=== PATIENT | male | born 1965 | race Caucasian/White ===

== ENCOUNTER → 2016-10-28 | Outpatient (CLI) | payer BC ==
[~2016-10-28] MED LIST: ASTN; BCTCR/30 EXT; CLIN300C2 PO; CLR10 PO; COMPOUND MEDICATION NEB; ERGO1CAP35 PO; GEMF600T PO; INSDGI SC; LEVO75TA5 PO; LISI-789 PO; METF-384 PO
[2016-10-28 11:35] LABS: ESTIMATED AVERAGE GLUCOSE 151 mg/dl; HA1C FLAG Normal (Normal)
[2016-10-28 11:38] LABS: ALT/SGPT 25 U/L (12-78); AST/SGOT 17 U/L (15-37); BLOOD UREA NITROGEN 18 mg/dl (7-18); BUN/CREATININE RATIO 16.5 (10-20); CARBON DIOXIDE 24 mmol/L (21-32); CHLORIDE 106 mmol/L (98-107); CHOLESTEROL 197 mg/dl (0-200); GLUCOSE 143 mg/dl (70-99); POTASSIUM 4.1 mmol/L (3.5-5.1); SODIUM 139 mmol/L (136-145); TRIGLYCERIDES 254 mg/dl (0-150); VERY LOW DENSITY LIPOPROT CALC 51 mg/dl
[2016-10-28 11:46] LABS: ALB/GLOB RATIO 1.3 (0.9-2); ALKALINE PHOSPHATASE 69 U/L (45-117); CHOLESTEROL/HDL RATIO 5.8; HDL CHOLESTEROL 34 mg/dl; LDL CHOLESTEROL CALCULATED 112 mg/dl
[2016-10-28 11:54] LABS: RATIO 5.1 mcg/mg (0-30.0)
== END | disposition home or self-care (01) ==
LOC: C.LABBC 08:34
PROVIDERS: ATTEND Internal Medicine
DX: E55.9 Vitamin D deficiency, unspecified (principal); E03.9 Hypothyroidism, unspecified; Z12.5 Encounter for screening for malignant neoplasm of prostate; E11.9 Type 2 diabetes mellitus without complications

== ENCOUNTER 2016-11-03 03:31 | Emergency (ER) | payer BC, OTHER ==
[~2016-11-03] VITALS: Ht 172.7 cm; Wt 123.6 kg
[~2016-11-03 03:31] MED LIST changes: -INSDGI SC; -LEVO75TA5 PO
[2016-11-03 03:32] VITALS: TEMP 36.6; Ht 172.7 cm; Wt 123.6 kg
[2016-11-03] MEDS ORDERED: SODIUM CHLORIDE 0.9% 1000ML 1,000 ML IV STA (03:42)
--- NOTE | 2016-11-03 03:46 | EMERGENCY ROOM VISIT NOTE ---
History Report prepared by Annamarie: David Ellis Under the Supervision of: Dr. Jimmy Mcrae M.D. First contact with patient: 03:36 Chief Complaint: RIB PAIN Stated Complaint: PAIN IN RIBS/CHEST/SOB History of Present Illness The patient is a 51 year old male who presents to the Emergency Room with complaints of severe left lower chest pain starting about 2 weeks ago and worsening today. He also complains of shortness of breath. He has worsening symptoms with lying down. He has not taken any medication to help alleviate his symptoms. He denies loss of consciousness, diarrhea, blood in stool, or any other complaints. He has a history of blood clots in neck after a port was placed related to pancreatitis treatment. The patient denies any history of splenic problems, AAA, or recent steroid use. Source of History: patient Onset: about 2 weeks ago Position: chest (left) Symptom Intensity: severe Timing: worsening Modifying Factors (Worsening): other (lying down) Associated Symptoms: + SOB, No LOC, No diarrhea Review of Systems See HPI for pertinent positives & negatives. A total of 10 systems reviewed and were otherwise negative. Past Medical & Surgical Medical Problems: (1) Gout attack (2) Hyperlipidemia (3) Hypertension (4) Hypertriglyceridemia (5) Pancreatitis (6) Polyarthropathy (7) Type 2 diabetes mellitus Family History Patient reports no known family medical history. Social History Smoking Status: Never Smoker Alcohol Use: none Drug Use: none Marital Status: Occupation Status: employed Current/Historical Medications Scheduled Gemfibrozil (Lopid), 600 MG PO BID Lisinopril (Zestril), 2.5 MG PO HS Metformin Hcl (Glucophage), 1,000 MG PO BID Allergies Coded Allergies: No Known Allergies (Unverified , 11/03/16) Physical Exam Vital Signs Date Time Temp Pulse Resp B/P Pulse Ox O2 Delivery O2 Flow Rate FiO2 11/03/16 06:43 63 18 146/77 94 11/03/16 05:47 64 18 132/84 96 Room Air 11/03/16 04:34 63 22 139/84 96 Room Air 11/03/16 03:44 75 11/03/16 03:32 36.6 76 18 147/88 95 Room Air Physical Exam GENERAL: Patient is uncomfortable appearing and in moderate distress. HEENT: No acute trauma, normocephalic atraumatic, mucous membranes moist, no nasal congestion, no scleral icterus. NECK: No stridor, no adenopathy, no meningismus, trachea is midline. LUNGS: No dyspnea. Clear to auscultation and equal bilaterally. No wheeze, no rhonchi. HEART: Regular rate and rhythm. No murmurs, rubs, gallops appreciated. ABDOMEN: Soft, tenderness to palpation of left upper quadrant specifically at the base of ribs, bowel sounds positive, no masses appreciated, no peritonitis. BACK: No midline tenderness, no CVA tenderness EXTREMITIES: Normal motion all extremities, no cyanosis, no edema. NEUROLOGIC: Alert and oriented, no acute motor or sensory deficits, no focal weakness, cranial nerves grossly intact. SKIN: No rash, no jaundice, no diaphoresis. Medical Decision & Procedures ER Provider Diagnostic Interpretation: CT results as stated below per interpretation by me and the radiologist: CTA CHEST Compared to 05/03/2012 No evidence of pulmonary embolism or aortic dissection. Minor atelectatic changes. Mild peribronchial thickening. Tiny right lower lobe pulmonary nodule (image [id number]). No pneumothorax or pleural effusion. CT ABDOMEN AND PELVIS Compared to 01/27/2013 Prominence of the left renal collecting system without evidence of ureteral stone. A recently passed stone is not entirely excluded. No evidence of bowel obstruction. No acute inflammatory process. Additional incidental findings. Radiologist: Letty Rosa MD Laboratory Results 11/03/16 04:08 Red Blood Count 4.34, Mean Corpuscular Volume 85.9, Mean Corpuscular Hemoglobin 30.4, Mean Corpuscular Hemoglobin Concent 35.4, Mean Platelet Volume 9.9, Neutrophils (%) (Auto) 51.5, Lymphocytes (%) (Auto) 38.0, Monocytes (%) (Auto) 8.1, Eosinophils (%) (Auto) 1.8, Basophils (%) (Auto) 0.5, Neutrophils # (Auto) 3.77, Lymphocytes # (Auto) 2.78, Monocytes # (Auto) 0.59, Eosinophils # (Auto) 0.13, Basophils # (Auto) 0.04 11/03/16 04:08 Test 11/03/16 04:08 11/03/16 05:42 White Blood Count 7.32 K/uL (4.8-10.8) Red Blood Count 4.34 M/uL (4.7-6.1) Hemoglobin 13.2 g/dL (14.0-18.0) Hematocrit 37.3 % (42-52) Mean Corpuscular Volume 85.9 fL (80-100) Mean Corpuscular Hemoglobin 30.4 pg (25-34) Mean Corpuscular Hemoglobin Concent 35.4 g/dl (32-36) Platelet Count 251 K/uL (130-400) Mean Platelet Volume 9.9 fL (7.4-10.4) Neutrophils (%) (Auto) 51.5 % Lymphocytes (%) (Auto) 38.0 % Monocytes (%) (Auto) 8.1 % Eosinophils (%) (Auto) 1.8 % Basophils (%) (Auto) 0.5 % Neutrophils # (Auto) 3.77 K/uL (1.4-6.5) Lymphocytes # (Auto) 2.78 K/uL (1.2-3.4) Monocytes # (Auto) 0.59 K/uL (0.11-0.59) Eosinophils # (Auto) 0.13 K/uL (0-0.5) Basophils # (Auto) 0.04 K/uL (0-0.2) Bedside Hemoglobin 12.6 g/dl (14.0-18.0) Bedside Hematocrit 37 % (42-52) RDW Standard Deviation 40.9 fL (36.4-46.3) RDW Coefficient of Variation 12.9 % (11.5-14.5) Immature Granulocyte % (Auto) 0.1 % Immature Granulocyte # (Auto) 0.01 K/uL (0.00-0.02) Bedside Sodium 142 mEq/L (135-144) Bedside Potassium 3.7 mEq/L (3.3-5.0) Bedside Chloride 103 mEq/L (101-112) Bedside Total CO2 23 mEq/l (24-31) Anion Gap 21.0 mmol/L (16-25) Bedside Blood Urea Nitrogen 17 mg/dl (7-18) Bedside Creatinine 0.9 mg/dl (0.6-1.3) Est Creatinine Clear Calc Drug Dose 110.6 ml/min Estimated GFR () 99.8 Estimated GFR (Non- 86.2 BUN/Creatinine Ratio 15.5 (10-20) Bedside Glucose (other) 117 mg/dl (70-99) Calcium Level 8.8 mg/dl (8.5-10.1) Bedside Ionized Calcium ([place]and[place]) 1.22 mmol/l (1.12-1.32) Total Bilirubin 0.2 mg/dl (0.2-1) Direct Bilirubin < 0.1 mg/dl (0-0.2) Aspartate Amino Transf (AST/SGOT) 14 U/L (15-37) Alanine Aminotransferase (ALT/SGPT) 27 U/L (12-78) Alkaline Phosphatase 73 U/L (45-117) Total Creatine Kinase 124 U/L (39-308) Creatine Kinase MB 1.0 ng/ml (0.5-3.6) Creatine Kinase MB Ratio 0.8 (0-3.0) Troponin I < 0.015 ng/ml (0-0.045) Total Protein 7.1 gm/dl (6.4-8.2) Albumin 4.0 gm/dl (3.4-5.0) Lipase 135 U/L (73-393) Urine Color YELLOW Urine Appearance CLEAR (CLEAR) Urine pH 5.0 (4.5-7.5) Urine Specific [place] > 1.045 (1.000-1.030) Urine Protein NEG (NEG) Urine Glucose (UA) NEG (NEG) Urine Ketones NEG (NEG) Urine Occult Blood NEG (NEG) Urine Nitrite NEG (NEG) Urine Bilirubin NEG (NEG) Urine Urobilinogen NEG (NEG) Urine Leukocyte Esterase NEG (NEG) Urine WBC (Auto) 0 /hpf (0-5) Urine RBC (Auto) 0-4 /hpf (0-4) Urine Hyaline Casts (Auto) 1-5 /lpf (0-5) Urine Epithelial Cells (Auto) 0-5 /lpf (0-5) Urine Bacteria (Auto) NEG (NEG) Laboratory results as reviewed by me. Medications Administered Medications (Trade) Dose Ordered Sig/Phyllis Route Start Time Stop Time Status Last Admin Dose Admin Sodium Chloride (Nss 1000ml) 1,000 ml @ 999 mls/hr Q1H1M STAT IV 11/03/16 03:42 11/03/16 04:42 DC 11/03/16 04:07 999 MLS/HR ECG Indication: chest pain Rate (beats per minute): 71 Rhythm: normal sinus Findings: no acute ischemic change, no ectopy ED Course 0336: The patient was evaluated in room B12B. A complete history and physical exam was performed. 0342: Sodium Chloride 1000 ml @ 999 mls/hr IV 0516: I reevaluated the patient who is doing well. 0539: The patient reported that his pain periodically radiates to his back. 0634: Reevaluated the patient. Discussed results and discharge instructions: He verbalized understanding and agreement. He will follow up with his PCP on Tuesday. The patient is ready for discharge. Medical Decision Differential: Cholecystitis, Gallbladder disfunction, Hepatic Disfunction, Gastritis/PUD, Pancreatitis, ACS, Aortic Pathology, amongst other pathologies entertained. 51 yr old arrives with pleuritic left lower chest / LUQ pain. Definitively worse with deep inspiration but also with palpation just below rib line. Notes periodically radiates to posterior flank as well. No rash appreciated and patient patient with no known trauma to area. Admits worse while laying flat but essentially has been steady for last 2 weeks. EKG unremarkable and with negative Trop after 2 weeks I feel this is not ACS. Has PE/DVT history thus with pleuritic component felt that CT PE necessary though with pancreatitis history felt reasonable running CT through abdo/pelv as well. He does not have any acute findings on his CT other than some mild left renal findings though UA is completely clean and after 2 weeks I feel that retained stone is unlikely, along with no evidence of infection. No evidence of PE nor pneumonia. Lipase normal and no pancreatitis on CT. Not consistent with cholecystitis. Could be gastric in nature but seems like ongoing for 2 weeks would be unusual. Impression Primary Impression: Left upper quadrant abdominal tenderness Scribe Attestation The scribe's documentation has been prepared under my direction and personally reviewed by me in its entirety. I confirm that the note above accurately reflects all work, treatment, procedures, and medical decision making performed by me. Departure Information Dispostion Home / Self-Care Referrals RV. Moise MD (PCP) Forms HOME CARE DOCUMENTATION FORM, IMPORTANT VISIT INFORMATION, WORK / SCHOOL INSTRUCTIONS Patient Instructions A Signature Page, ED Flank Pain Uncertain Cause, My [facility] Problem Qualifiers Primary Impression: Left upper quadrant abdominal tenderness Presence of rebound: not specified Qualified Codes: R10.812 - Left upper quadrant abdominal tenderness
[2016-11-03] MEDS ORDERED: OPTIRAY 320 IV PRN (04:00)
[2016-11-03 04:20] LABS: BASO % 0.5 %; BASO ABS # 0.04 K/uL (0-0.2); COMPLETE YES; EOS % 1.8 %; HEMATOCRIT 37.3 % (42-52); IG% 0.1 %; LYMPH ABS # 2.78 K/uL (1.2-3.4); MEAN CELL VOLUME 85.9 fL (80-100); MEAN CORPUSCULAR HEMOGLOBIN 30.4 pg (25-34); MEAN CORPUSCULAR HGB CONC 35.4 g/dl (32-36); MEAN PLATELET VOLUME 9.9 fL (7.4-10.4); MONO % 8.1 %; NEUT % 51.5 %; PLATELET COUNT 251 K/uL (130-400); RED BLOOD COUNT 4.34 M/uL (4.7-6.1); WHITE BLOOD COUNT 7.32 K/uL (4.8-10.8)
[2016-11-03 04:25] LABS: ISTAT CREATININE 0.9 mg/dl (0.6-1.3); ISTAT HEMOGLOBIN 12.6 g/dl (14.0-18.0); ISTAT IONIZED CALCIUM 1.22 mmol/l (1.12-1.32)
[2016-11-03 04:39] LABS: ALT/SGPT 27 U/L (12-78); AST/SGOT 14 U/L (15-37); BLOOD UREA NITROGEN 16 mg/dl (7-18); BUN/CREATININE RATIO 15.5 (10-20); CALCIUM 8.8 mg/dl (8.5-10.1); CARBON DIOXIDE 26 mmol/L (21-32); CHLORIDE 106 mmol/L (98-107); GLUCOSE 118 mg/dl (70-99); POTASSIUM 3.7 mmol/L (3.5-5.1); SODIUM 142 mmol/L (136-145)
[2016-11-03 04:44] LABS: ALKALINE PHOSPHATASE 73 U/L (45-117); CKMB/CK RATIO 0.8 (0-3.0)
[2016-11-03 06:20] LABS: URINE APPEARANCE CLEAR (CLEAR); URINE BILIRUBIN NEG (NEG); URINE COLOR YELLOW; URINE EPITHELIAL CELL AUTO 0-5 /lpf (0-5); URINE NITRITE NEG (NEG); URINE SPECIFIC GRAVITY > 1.045 (1.000-1.030); UROBILINOGEN NEG (NEG); ZZUR CULT IF INDIC CLEAN CATCH NO
[2016-11-03 06:21] LABS: MANUAL MICROSCOPIC REQUIRED? NO; REVIEW REQ? NO
[2016-11-03 06:43] VITALS: BP 146/77; PULSE 63; O2SAT 94
--- NOTE | 2016-11-03 06:47 | DIAGNOSTIC IMAGING REPORT ---
CT ABD/PELVIS IV CONTRAST ONLY CLINICAL HISTORY: Left flank and left upper quadrant pain COMPARISON STUDY: 01/27/2013 TECHNIQUE: Following the IV administration of 118 mL of Optiray-320, CT scan of the abdomen and pelvis was performed from the lung bases to the proximal femurs. Images are reviewed in the axial, sagittal, and coronal planes. IV contrast was administered without complication. CT DOSE: FINDINGS: Lower chest: There are mild basilar atelectatic changes. There is a stable 5 x 3 mm right upper lobe pulmonary nodule Liver: There is hepatic steatosis. No focal masses are visualized. Gallbladder: Unremarkable. Spleen: Normal in size and attenuation. Pancreas: There is a small cyst adjacent to the pancreatic head containing calcifications. Given the prior findings of pancreatitis, this likely represents an old pseudocyst. There are few scattered pancreatic parenchymal calcifications. Adrenal glands: Unremarkable. Kidneys: There is minimal prominence of the collecting systems. No calculi are visualized. There is 6 mm right renal hypodensity likely representing a cyst. There is a partially rim calcified 7 mm hypodensity abutting the anterior aspect of the kidney. This is present on prior 2011 study. This may be extrinsic to the kidney. This is of doubtful acute clinical significance. Bowel: There are no transition zones indicate bowel obstruction. The appendix appears normal. There is no evidence of acute diverticulitis. Peritoneum: There is no intraperitoneal free air or abdominal ascites. Vasculature: The abdominal aorta is normal in course and caliber. Adenopathy: None. Pelvic viscera: The bladder, and pelvic viscera are unremarkable. Skeletal structures: No destructive osseous lesions are seen. IMPRESSION: 1. No evidence of bowel obstruction. No evidence of free air 2. No acute inflammatory changes. Electronically signed by: David Kelley M.D. 11/03/2016 6:46 AM Dictated Date/Time: 11/03/2016 6:38 AM
--- NOTE | 2016-11-03 07:30 | DIAGNOSTIC IMAGING REPORT ---
CT ANGIOGRAM OF THE CHEST CLINICAL HISTORY: Pleuritic left-sided chest pain. COMPARISON STUDY: Chest x-ray dated 05/24/2012. Chest CT dated 05/03/2012. TECHNIQUE: Following the IV administration of 118 cc of Optiray 320, CT angiogram of the chest was performed from the upper abdomen to the thoracic inlet utilizing the pulmonary embolus protocol. Images are reviewed in the axial, sagittal, and coronal planes. 3-D MIPS images are created and assessed. IV contrast was administered without complication. CT DOSE: 2251.51 mGy.cm FINDINGS: Thyroid: Imaged portions of the thyroid gland are normal in size and attenuation. Thoracic aorta: The thoracic aorta is normal in caliber and demonstrates standard 3-vessel arch anatomy. No aneurysm or dissection is seen. Pulmonary vasculature: The main pulmonary arteries are mildly dilated suggesting pulmonary artery hypertension. There are no filling defects identified in main, lobar, or segmental pulmonary branches to suggest pulmonary embolus. Heart: The heart is enlarged and without pericardial effusion. Lungs and pleural spaces: Evaluation of the lung parenchyma is modestly degraded by expiratory motion artifact. A calcified granuloma is noted at the left lung base. There is minimal dependent atelectasis. No airspace consolidation or pleural effusion is seen. There is a 3 mm right lower lobe pulmonary nodule seen on axial image #172. This is unchanged from 2012 and of doubtful significance. The trachea and central airways are clear. Mediastinum: There is no mediastinal lymphadenopathy. Cami: Clear. Axillae: There is no axillary lymphadenopathy. Upper abdomen: The liver is enlarged and steatotic. There is a small hiatal hernia. Parenchymal calcifications are noted in the pancreas and suggest chronic pancreatitis. Skeletal structures: No lytic or blastic bony lesions are seen. Arthritic change is noted in the shoulders. IMPRESSION: 1. There is no evidence of pulmonary embolus in the main, lobar, or segmental pulmonary arteries. 2. There is no airspace consolidation or pleural effusion. 3. Cardiomegaly. 4. Hepatomegaly and hepatic steatosis. 5. Findings are consistent with chronic pancreatitis. 6. Additional findings as above. Electronically signed by: Trent Holland M.D. 11/03/2016 7:28 AM Dictated Date/Time: 11/03/2016 7:22 AM
[2017-04-12] MEDS ORDERED: LEVO75TA5 PO (08:56)
[2017-04-12] MEDS ORDERED: INSDGI SC (08:56)
== END 2016-11-03 06:45 | disposition home or self-care (01) ==
LOC: C.EDB 03:31
DX: R10.812 Left upper quadrant abdominal tenderness (principal); I10 Essential (primary) hypertension; E11.9 Type 2 diabetes mellitus without complications; E78.1 Pure hyperglyceridemia; E78.5 Hyperlipidemia, unspecified; Z86.72 Personal history of thrombophlebitis; Z79.84 Long term (current) use of oral hypoglycemic drugs; Z79.899 Other long term (current) drug therapy

== ENCOUNTER → 2017-03-18 | Outpatient (CLI) | payer BC ==
[~2017-03-18] MED LIST changes: -ASTN; -BCTCR/30 EXT; -CLIN300C2 PO; -CLR10 PO; -COMPOUND MEDICATION NEB; -ERGO1CAP35 PO; +INSDGI SC; +LEVO75TA5 PO
--- NOTE | 2017-03-18 08:49 | DIAGNOSTIC IMAGING REPORT ---
CT SCAN OF THE PARANASAL SINUSES CLINICAL HISTORY: Chronic sinusitis. COMPARISON STUDY: CT scan of the paranasal sinuses dated 12/20/2014. TECHNIQUE: High-resolution CT scan of the paranasal sinuses is performed. Images are reviewed in the axial, sagittal, and coronal planes. IV contrast was not administered for this examination. The examination is performed using the fusion protocol. CT DOSE: 628.09 mGy.cm FINDINGS: Postoperative change: There are postoperative changes from maxillary antrectomy with antrostomy formation as well as ethmoid sinus resection. Maxillary antra: There is mild mucosal thickening within the left maxillary antrum with a small air-fluid level. Trace mucosal thickening is seen on the right. Ethmoid cavities: Mild mucosal thickening is noted. Sphenoid sinuses: Trace mucosal thickening is on the left. Clear on the right. Frontal sinuses: Clear. Ostiomeatal complexes: The antrostomies are widely patent bilaterally. Frontoethmoidal and sphenoethmoidal recesses: Patent bilaterally. Carotid arteries: The carotid arteries are covered noting a septal attachment on the right. Ethmoid roofs: There is mildly asymmetric elevation of the left ethmoid roof as compared to the right. Nasal turbinates: Normal in appearance. Nasal septum: There is minimal rightward deviation of the bony nasal septum. Optic nerves: Covered. Orbits: The bony orbits are intact. Orbital contents are normal in appearance. Calvarium: The imaged calvarium is normal in appearance Mastoid air cells: Well pneumatized. Brain parenchyma: Partially visualized brain parenchyma is within normal limits. IMPRESSION: Paranasal sinus disease and postoperative change as above. Electronically signed by: Trent Holland M.D. 03/18/2017 8:48 AM Dictated Date/Time: 03/18/2017 8:45 AM
== END | disposition home or self-care (01) ==
LOC: C.CTS 08:22
DX: J32.9 Chronic sinusitis, unspecified (principal)

== ENCOUNTER → 2017-04-29 | Day surgery (SDC) | payer BC ==
[2017-04-12 08:57] VITALS: Ht 172.7 cm; Wt 109.1 kg
[~2017-04-29] VITALS: Ht 172.7 cm; Wt 109.1 kg
[~2017-04-29] MED LIST changes: +ATROPINE SULFATE 0.1 MG/ML 5ML SYR IV PRN; +CEFAZOLIN 2000 MG/60 ML D5W IV SCH; +DEXAMETHASONE SOD INJ 4 MG/ML VIAL IV PRN; +DEXAMETHASONE SOD INJ 4 MG/ML VIAL ONE; +EpHEDrine SULFATE INJ 50 MG/ML AMP IV PRN; +EpHEDrine SULFATE INJ 50 MG/ML AMP ONE; +EpINEphrine INJ 1MG/ML AMP 1 MG/ML AMP ONE; +FENTANYL CITRATE INJ 50 MCG/1 ML 2 ML VIAL ONE; +GLYCOPYRROLATE INJ 0.2 MG/ML VIAL ONE; +HYDROCODONE/ACETAMOPHEN 5/325MG TAB PO PRN; +KETOROLAC TROMETHAMINE 30 MG/ML VIAL IV. PRN; +LABETALOL HCL IV 5 MG/ML 20ML IV PRN; +LACTATED RINGER'S 1000ML 1,000 ML IV SCH; +LIDOCAINE 4% MPF SOAK 5 ML = 1 DOSE TOP ONE; +LIDOCAINE HCL 2% 2 ML VIAL (20MG/ML) ONE; +LIDOCAINE/EPINEPHRINE 1% INJ 50 ML VIAL ONE; +METOCLOPRAMIDE HCL INJ 5 MG/ML 2 ML VIAL IV PRN; +MIDAZOLAM HCL 1 MG/ML 2ML VIAL ONE; +MoRPHine SULFATE 10 MG/ML CARP/VIAL IV PRN; +NEOSTIGMINE METHYLSULFATE 5 MG/5 ML SYR ONE; +ONDANSETRON INJ 2 MG/ML 2 ML VIAL IV PRN; +ONDANSETRON INJ 2 MG/ML 2 ML VIAL ONE; +OXYMETAZOLINE HCL 0.05% NA SPR 15 ML BTL NAE SCH; +OXYMETAZOLINE HCL 0.05% NA SPR 15 ML BTL PRN; +PHENYLEPHRINE 100MCG/ML 5ML SYR IV PRN; +PHENYLEPHRINE HCL INJ 10 MG/ML VIAL ONE; +PROPOFOL IV EMULSION 10 MG/ML 20 ML VIAL IV ONE; +SUCCINYLCHOLINE CHLORIDE 20 MG/ML 10 ML VIAL IV ONE
--- NOTE | 2017-04-29 10:09 | History and Physical: Surg Cnt ---
History & Physical Date Apr 29, 2017. Chief Complaint CHRONIC SINUSITIS History of Present Illness The patient is a 51 year old male with complaints of CHRONIC SINUSITIS AND RECURRENT ACUTE SINUSITIS WITH 4 RX'D EPISODES PER YR. PT S/P B FESS IN THE PAST BY ANOTHER ENT SURGEON. Past Medical/Surgical History Medical Problems: (1) Gout attack (2) Hyperlipidemia (3) Hypertension (4) Hypertriglyceridemia (5) Pancreatitis (6) Polyarthropathy (7) Type 2 diabetes mellitus 8. OBESITY 9. H/O PULMONARY EMBOLISM 10. VITAMIN B12 AND D DEFICIENCY PSH: S/P CLOSED REDUCTION NASAL FX, S/P B FESS Additional History Hepatic Disease: No Endocrine Disorder: No Kidney Disease: No Hypertension: No Heart Disease: No Bleeding Tendencies: No Infectious Diseases: No Allergies Coded Allergies: No Known Allergies (Unverified , 04/29/17) Home Medications Scheduled Gemfibrozil (Lopid), 600 MG PO BID Insulin Glargine (Lantus), 15 UNITS SC QPM Levothyroxine Sodium (Levothyroxine Sodium), 1 TAB PO QAM Lisinopril (Zestril), 2.5 MG PO HS Metformin Hcl (Glucophage), 1,000 MG PO BID Physical Examination Skin: warm/dry, no rash Eyes: normal inspection, EOMI, sclerae normal ENT: + pertinent finding (VERY SMALL MAXILLARY ANTROSTOMIES WITH THICK MUCUS ON L; + ETHMOID SCARRING WITH MILD MUCOSAL THICKENING) Neck: supple, no adenopathy, trachea midline Respiratory/Chest: lungs clear, normal breath sounds, no respiratory distress Cardiovascular: regular rate, rhythm, no edema, no murmur Neurologic/Psych: no motor/sensory deficits, alert, normal reflexes, oriented x 3 Diagnosis CHRONIC SINUSITIS Plan of Treatment REVISION B FESS
--- NOTE | 2017-04-29 10:46 | Discharge Instructions ---
Discharge Instructions Date of Service Apr 29, 2017. Admission Reason for Admission: Chronic Sinusitis Discharge Discharge Diagnosis / Problem: same Discharge Goals Goal(s): Therapeutic intervention Activity Recommendations Activity Limitations: as noted below LIGHT ACTIVITY FOR 2 WEEKS; NO NOSE BLOWING FOR 2 WEEKS; NO DRIVING WHILE ON NORCO . Current Hospital Diet Patient's current hospital diet: Discharge Diet Recommended Diet: Regular Diet Procedures Procedures Performed: Bilateral Revision Endoscopic Sinus Surgery Pending Studies Studies pending at discharge: no Medical Emergencies . Who to Call and When: Medical Emergencies: If at any time you feel your situation is an emergency, please call 911 immediately. . Non-Emergent Contact Non-Emergency issues call your: Surgeon . . "Provider Documentation" section prepared by Dao Bains. . VTE Core Measure Inpt VTE Proph given/why not?: SCD's
--- NOTE | 2017-04-29 11:09 | [facility] Operative Report ---
Operative Report Operative Date Apr 29, 2017. Pre-Operative Diagnosis Chronic Sinusitis Post-Operative Diagnosis same as preop Procedure(s) Performed Bilateral Revision Endoscopic Sinus Surgery consisting of revision bilateral maxillary antrostomies and revision bilateral complete ethmoidectomies Surgeon Dr. Bains Stone Polisher Surgeon(s) none Estimated Blood Loss 5ml Findings 1. Left maxillary sinus mucopurulence likely present due to recirculation phenomenon with left maxillary antrostomy as well as an anterior fontanelle not connected with his previous surgery 2. Overall small maxillary antrostomies bilaterally 3. Some scar formation and mild mucosal thickening involving the bilateral ethmoid sinuses Specimens none per surgeon Anesthesia Gen. endotracheal Complication(s) None Indications 51-year-old male status post bilateral endoscopic sinus surgery in the past by another physical security manager was had recurrent acute and chronic sinusitis with approximate 4 treated infections per year. On physical examination he was found to have mucus trapped within the left maxillary sinus. A posttreatment CT scan of the sinuses showed narrowed maxillary antrostomies and some patchy ethmoid sinus mucosal thickening and scar formation likely contributing to his recurrent infections. He presents for revision bilateral endoscopic sinus surgery. Description of Procedure After informed consent had been obtained from the patient, the patient was wheeled to the operating room and placed on the operating room table in the supine position. Monitors were placed, and after induction of general endotracheal anesthesia, the patient's prepped in the usual fashion for endoscopic sinus surgery. Lidocaine and epinephrine pledgets are placed into the bilateral nasal cavities and middle meati and pressure applied. The left- sided pledgets are removed. 1% lidocaine with 1-100,000 epinephrine was used to inject the lateral nasal wall and middle turbinate. A lidocaine and epinephrine pledget was placed into the left middle meatus. The right side was then addressed in a similar fashion. The left-sided pledget was then removed. Mucopurulence was noted to be within the left maxillary sinus which was completely evacuated. After this had been performed, it was noted that the patient's left maxillary antrostomy which was quite narrowed and scarred was not connected to an anterior fontanelle. The mucosal bridge in between these 2 openings was removed using backbiting forceps and powered regimen dictation. Also the anterior, posterior, and inferior aspects of the maxillary antrostomy were widened using backbiting forceps and powered instrumentation. A revision complete ethmoidectomy was then performed using powered instrumentation. A lidocaine and epinephrine pledget was then placed into the left ethmoid cavity. On the right-hand side the right maxillary antrostomy which was quite narrow and small was enlarged anteriorly, inferiorly, and posteriorly using backbiting forceps and powered instrumentation. A revision right complete ethmoidectomy was then performed using powered instrumentation. The sinonasal cavities were then suctioned. MeroGel nasal dressing was placed into the bilateral ethmoid sinuses and middle meatal type. An orogastric tube was placed and the stomach was suctioned free of air and stomach contents. This marked the end of the case. The patient tolerated the procedure well with no apparent complications. The patient was extubated and transferred to the recovery room in stable condition. I attest to the content of the Intraoperative Record and any orders documented therein. Any exceptions are noted below.
[2017-04-29] MEDS: FENTANYL CITRATE INJ 50 MCG/1 ML 2 ML VIAL IV PRN ×2 (11:20→11:28)
[2017-04-29 11:57] VITALS: TEMP 36.4
[2017-04-29 12:35] VITALS: BP 131/85; PULSE 64; O2SAT 95
--- NOTE | 2017-04-29 12:38 | Anesthesia Progress Nt - [facility] ---
Anesthesia Post Op Note Date & Time Apr 29, 2017 at 12:37 Vital Signs Pain Intensity: 0 Vital Signs Past 12 Hours Date Time Temp Pulse Resp B/P (MAP) Pulse Ox O2 Delivery O2 Flow Rate FiO2 04/29/17 12:35 64 18 131/85 (100) 95 Room Air 04/29/17 11:57 36.4 71 20 125/69 (87) 95 Room Air 04/29/17 11:52 36.4 72 12 04/29/17 11:52 74 12 94 04/29/17 11:51 136/65 (115) 04/29/17 11:47 68 13 94 04/29/17 11:47 68 13 04/29/17 11:46 154/101 (109) 04/29/17 11:42 71 15 04/29/17 11:42 71 15 93 04/29/17 11:41 144/97 (101) 04/29/17 11:37 72 19 99 04/29/17 11:37 71 19 04/29/17 11:36 124/80 (99) 04/29/17 11:32 57 7 04/29/17 11:32 56 7 100 04/29/17 11:31 126/89 (105) 04/29/17 11:27 62 14 04/29/17 11:27 63 14 95 04/29/17 11:26 131/84 (92) 04/29/17 11:22 73 17 95 04/29/17 11:22 74 17 04/29/17 11:21 138/77 (96) 04/29/17 11:17 68 16 94 04/29/17 11:17 67 16 04/29/17 11:16 133/79 (96) 04/29/17 11:15 Room Air 04/29/17 11:12 73 15 93 04/29/17 11:12 72 15 04/29/17 11:11 132/78 (91) 04/29/17 11:07 72 17 04/29/17 11:07 72 17 99 04/29/17 11:06 140/84 (92) 04/29/17 11:02 74 20 04/29/17 11:02 74 20 99 04/29/17 11:01 150/87 (107) 04/29/17 10:57 78 12 04/29/17 10:57 77 12 99 04/29/17 10:56 153/97 (117) 04/29/17 10:52 95 17 99 04/29/17 10:52 95 17 04/29/17 10:51 156/93 (128) 04/29/17 10:50 36.0 104 20 156/93 99 Humidified Oxygen 6 Mask 04/29/17 09:11 36.8 56 16 131/87 (102) 93 Room Air Notes Mental Status: alert / awake / arousable, participated in evaluation Pt Amnestic to Procedure: Yes Nausea / Vomiting: adequately controlled Pain: adequately controlled Airway Patency, RR, SpO2: stable & adequate BP & HR: stable & adequate Hydration State: stable & adequate Anesthetic Complications: no major complications apparent
== END | disposition home or self-care (01) ==
LOC: X.SURG 09:04
DX: J32.9 Chronic sinusitis, unspecified (principal); E78.5 Hyperlipidemia, unspecified; I10 Essential (primary) hypertension; E11.9 Type 2 diabetes mellitus without complications; E78.1 Pure hyperglyceridemia; E66.9 Obesity, unspecified; E53.8 Deficiency of other specified B group vitamins; E55.9 Vitamin D deficiency, unspecified; Z79.4 Long term (current) use of insulin; Z86.711 Personal history of pulmonary embolism